=== PATIENT | male | born 1965 | race Caucasian/White ===

== ENCOUNTER 2016-08-27 20:13 | Emergency (ER) | payer BC ==
[~2016-08-27] VITALS: Ht 172.7 cm; Wt 78.5 kg
[~2016-08-27 20:13] MED LIST: METH10TA97
[2016-08-27 20:17] VITALS: Ht 172.7 cm; Wt 78.5 kg
[2016-08-27] MEDS ORDERED: SOD CHLORIDE 0.9% 1,000 ML IV ONE (21:30)
[2016-08-27] MEDS: ACETAMINOPHEN 325 MG TAB PO ONE ×2 (21:30→23:37)
[2016-08-27 22:02] LABS: ADD UMIC YES; UR ASCORBIC ACID NEGATIVE (NEGATIVE); UR BILIRUBIN (Dip) NEGATIVE (NEGATIVE); UR BLOOD (Dip) 3+ mg/dL (NEGATIVE); UR CLARITY CLOUDY (CLEAR); UR COLOR AMBER (YELLOW); UR GLUCOSE (Dip) NEGATIVE (NEGATIVE); UR KETONES (Dip) NEGATIVE (NEGATIVE); UR LEUKOCYTE ESTERASE (Dip) NEGATIVE Leu/ul (NEGATIVE); UR MUCUS MANY /HPF (NONE SEEN); UR NITRITE (Dip) NEGATIVE (NEGATIVE); UR RBC > 182 /HPF (0-5); UR SPECIFIC GRAVITY (Dip) 1.028 (1.003-1.030); UR TOTAL PROTEIN (Dip) 2+ mg/dl (NEGATIVE); UR UROBILINOGEN (Dip) NEGATIVE (NEGATIVE)
[2016-08-27 22:51] LABS: ADD SCAN DIFF NO
--- NOTE | 2016-08-27 22:54 | RADRPT ---
PROCEDURE: CT Abdomen and Pelvis without contrast. CLINICAL INDICATION: Hematuria. TECHNIQUE: CT scan of the abdomen and pelvis without contrast was performed. Coronal and sagittal reformatted images were obtained from the axial source images. Images were reviewed on a high-resolu [employer] PACS workstation. Total exam DLP is 586.85 mGy-cm. CTDIvol is 10.78 mGy. One or more of the f ollowing dose reduction techniques were used: Automated exposure control, adjustment of the mA and/o r kV according to patient size, use of iterative reconstruction technique. COMPARISON: 12/13/2012. FINDINGS: The lung bases are normal. There is no pleural effusion. The liver is normal in size and attenuation. There is no focal hepatic lesion. The gallbladder is surgically absent with clips noted in the gallbladder bed. The bile ducts are no rmal. The spleen is mildly enlarged. There is no focal splenic lesion. Both adrenals are normal with no enlargement or mass. The pancreas is unremarkable with no mass or evidence of pancreatitis. There is no renal mass or hydronephrosis. There is a nonobstructing 0.7 x 0.5 cm calculus in the ri ght renal pelvis, a nonobstructing 0.6 x 1.0 cm calculus in the left renal pelvis, a nonobstructing 0.3 cm calculus in the lower left kidney posteriorly, and a nonobstructing 0.2 cm calculus in the lo wer left kidney anteriorly. There is no ureteral calculus on either side. The abdominal aorta is not dilated. There is no retroperitoneal lymphadenopathy or mass. There is no pelvic lymphadenopathy or mass. The bladder and distal ureters are normal. The periappendiceal region is unremarkable with no evidence of appendicitis. The bowel and mesentery are normal. There is no free fluid or free gas. There are degenerative changes of the spine. There is no fracture or lytic lesion. IMPRESSION: 1. Status post cholecystectomy. 2. Mild splenomegaly. 3. Nonobstructing bilateral renal calculi, larger and more numerous than seen previously. 4. Degenerative changes of the spine. 5. Otherwise unremarkable study. RPTAT: QQ .Tim Altman MD, MD Date Time Electronically viewed and signed by .Tim Altman MD, MD on 08/27/2016 22:54 .R/
--- NOTE | 2016-08-27 23:00 | ERD ---
ER Documentation Chief Complaint Date/Time DATE: 08/27/16 TIME: 23:00 Chief Complaint Dark red blood in urine since this morning ROS All systems reviewed and are negative except as per history of present illness. Medications Home Meds Reported Medications Methimazole* (Tapazole*) 10 Mg Tablet 04/30/12 Allergies Allergies: Coded Allergies: No Known Allergy (Unverified , 03/13/15) PMhx/Soc History of Surgery: Yes (gallbladder removed) Anesthesia Reaction: No Hx Neurological Disorder: No Hx Respiratory Disorders: No Hx Cardiac Disorders: No Hx Psychiatric Problems: No Hx Miscellaneous Medical Probl: Yes (RENAL STONE) Hx Alcohol Use: No Hx Substance Use: No Hx Tobacco Use: Yes (02/15 PPD) Smoking Status: Never smoker Physical Exam Vitals Vital Signs Date Time Temp Pulse Resp B/P Pulse Ox O2 Delivery O2 Flow Rate FiO2 08/27/16 20:17 98.8 82 18 114/97 100 Physical Exam Const: [] Head: Atraumatic Eyes: Normal Conjunctiva ENT: Normal External Ears, Nose and Mouth. Neck: Full range of motion..~ No meningismus. Resp: Clear to auscultation bilaterally Cardio: Regular rate and rhythm, no murmurs Abd: Soft, non tender, non distended. Normal bowel sounds Skin: No petechiae or rashes Back: No midline or flank tenderness Ext: No cyanosis, or edema Neur: Awake and alert Psych: Normal Mood and Affect Result Diagram: 08/27/16224908/27/162249 Results 24 hrs Laboratory Tests Test 08/27/16 21:45 08/27/16 22:50 Urine Color RETA Urine Clarity CLOUDY Urine pH 6.0 Urine Specific [place] 1.028 Urine Ketones NEGATIVEmg/dL Urine Nitrite NEGATIVEmg/dL Urine Bilirubin NEGATIVEmg/dL Urine Urobilinogen NEGATIVEmg/dL Urine Leukocyte Esterase NEGATIVELeu/ul Urine Microscopic RBC > 182/HPF Urine Microscopic WBC 5/HPF Urine Mucus MANY/HPF Urine Hemoglobin 3+mg/dL Urine Glucose NEGATIVEmg/dL Urine Total Protein 2+mg/dl White Blood Count 11.810^3/ul Red Blood Count 4.9210^6/ul Hemoglobin 16.1g/dl Hematocrit 45.5% Mean Corpuscular Volume 92.5fl Mean Corpuscular Hemoglobin 32.7pg Mean Corpuscular Hemoglobin Concent 35.4g/dl Red Cell Distribution Width 12.1% Platelet Count 03863^3/UL Mean Platelet Volume 10.8fl Neutrophils % 73.7% Lymphocytes % 17.5% Monocytes % 6.5% Eosinophils % 1.6% Basophils % 0.3% Nucleated Red Blood Cells % 0.0/100WBC Neutrophils # 8.710^3/ul Lymphocytes # 2.110^3/ul Monocytes # 0.810^3/ul Eosinophils # 0.210^3/ul Basophils # 0.010^3/ul Nucleated Red Blood Cells # 0.010^3/ul Sodium Level 143mmol/L Potassium Level 3.8mmol/L Chloride Level 105mmol/L Carbon Dioxide Level 23mmol/L Anion Gap 19 Blood Urea Nitrogen 14mg/dl Creatinine 0.93mg/dl Glucose Level 95mg/dl Calcium Level 9.5mg/dl Total Bilirubin 0.5mg/dl Direct Bilirubin 0.00mg/dl Indirect Bilirubin 0.5mg/dl Aspartate Amino Transf (AST/SGOT) 32IU/L Alanine Aminotransferase (ALT/SGPT) 49IU/L Alkaline Phosphatase 76IU/L Total Protein 7.7g/dl Albumin 5.0g/dl Globulin 2.70g/dl Albumin/Globulin Ratio 1.85 Lipase 50U/L Current Medications Medications (Trade) Dose Ordered Sig/Olena Route PRN Reason Start Time Stop Time Status Last Admin Dose Admin Sodium Chloride (NS) 1,000 ml @ 1,000 mls/hr Q1H ONCE IV 08/27/16 21:30 08/27/16 22:29 DC 08/27/16 23:36 Acetaminophen (Tylenol Tab) 650 mg ONCE ONCE PO 08/27/16 21:30 08/27/16 21:33 DC Interpretation text CBC shows no evidence of hemorrhage , CBC is elevated Chemistry shows no evidence of significant electrolyte abnormalities or renal insufficiency Liver function tests shows no evidence of acute biliary or hepatic dysfunction Lipase shows no evidence of acute pancreatitis Urinalysis positive for protein hematuria and discolored urine. Procedures/MDM PROCEDURE: CT Abdomen and Pelvis without contrast. CLINICAL INDICATION: Hematuria. TECHNIQUE: CT scan of the abdomen and pelvis without contrast was performed. Coronal and sagittal reformatted images were obtained from the axial source images. Images were reviewed on a high-resolution PACS workstation. Total exam DLP is 586.85 mGy-cm. CTDIvol is 10.78 mGy. One or more of the following dose reduction techniques were used: Automated exposure control, adjustment of the mA and/or kV according to patient size, use of iterative reconstruction technique. COMPARISON: 12/13/2012. FINDINGS: The lung bases are normal. There is no pleural effusion. The liver is normal in size and attenuation. There is no focal hepatic lesion. The gallbladder is surgically absent with clips noted in the gallbladder bed. The bile ducts are normal. The spleen is mildly enlarged. There is no focal splenic lesion. Both adrenals are normal with no enlargement or mass. The pancreas is unremarkable with no mass or evidence of pancreatitis. There is no renal mass or hydronephrosis. There is a nonobstructing 0.7 x 0.5 cm calculus in the right renal pelvis, a nonobstructing 0.6 x 1.0 cm calculus in the left renal pelvis, a nonobstructing 0.3 cm calculus in the lower left kidney posteriorly, and a nonobstructing 0.2 cm calculus in the lower left kidney anteriorly. There is no ureteral calculus on either side. The abdominal aorta is not dilated. There is no retroperitoneal lymphadenopathy or mass. There is no pelvic lymphadenopathy or mass. The bladder and distal ureters are normal. The periappendiceal region is unremarkable with no evidence of appendicitis. The bowel and mesentery are normal. There is no free fluid or free gas. There are degenerative changes of the spine. There is no fracture or lytic lesion. IMPRESSION: 1. Status post cholecystectomy. 2. Mild splenomegaly. 3. Nonobstructing bilateral renal calculi, larger and more numerous than seen previously. 4. Degenerative changes of the spine. 5. Otherwise unremarkable study. RPTAT: QQ .Tim Altman MD, MD Date Time Electronically viewed and signed by .Tim Altman MD, MD on 08/27/2016 22:54 This 50-year-old male patient presents to emergency department today with gross hematuria, history of cholelithiasis. Patient reports symptoms started this morning. He denies pain but is taking 800 mg of ibuprofen every 6 hours for tooth pain. Patient denies nausea vomiting fever or chills. Denies difficulty initiating urine stream. No concern for testicular torsion, pyelonephritis suspected cholelithiasis, CT abdomen and pelvis documents Nonobstructing bilateral renal calculi, larger and more numerous than seen previously. Departure Diagnosis: Primary Impression: UTI (urinary tract infection) Urinary tract infection type: site unspecified Hematuria presence: with hematuria Qualified Code: N39.0 - Urinary tract infection with hematuria, site unspecified Additional Impression: Nephrolithiasis Condition: Good Patient Instructions: Kidney Stone (Urine), Kidney Stone, Undescended (No Symptoms), Understanding Urinary Tract Infections (UTIs) [facility] Additional Instructions: Thank you for for coming to Thank you for for coming to [facility] for your care today. Please ask your nurse or provider if you have questions about your care today and do not leave until all your questions have been answered. Please use any medications given as directed and follow-up with your doctor (or the doctor you were referred to) in the next 2-3 days. If you do not have a primary care doctor you may follow up at the [facility] (listed below). You may also use motrin and tylenol as needed for fever and/or pain unless instructed otherwise by your provider or nurse. Indications for more urgent follow-up have been discussed, but you may return to the Emergency Department at ANY time for any worrisome or worsening symptoms. If you have abdominal pain, please know that no test or exam you received is perfect and you should follow up within 8 hours for continued pain. If you had any imaging studies today, such as an X-Ray or CT Scan, these studies will be reviewed later by a radiologist. You will be called if there are important findings that were not identified today, so make sure the contact information you provided at registration is correct. If you received any narcotic pain control medicine today, such as Vicodin, Morphine or Dilaudid, your coordination and judgment may be affected for a number of hours. Please do not drive or operate heavy machinery, and you may want someone to assist you at home. If you were given a prescription for narcotic medication, be aware that it is very addictive- use sparingly and only if necessary. For your care today. Please ask your nurse or provider if you have questions about your care today and do not leave until all your questions have been answered. Please use any medications given as directed and follow-up with your doctor (or the doctor you were referred to) in the next 2-3 days. If you do not have a primary care doctor you may follow up at the [facility] ( listed below). You may also use motrin and tylenol as needed for fever and/or pain unless instructed otherwise by your provider or nurse. Indications for more urgent follow-up have been discussed, but you may return to the Emergency Department at ANY time for any worrisome or worsening symptoms. If you have abdominal pain, please know that no test or exam you received is perfect and you should follow up within 8 hours for continued pain. If you had any imaging studies today, such as an X-Ray or CT Scan, these studies will be reviewed later by a radiologist. You will be called if there are important findings that were not identified today, so make sure the contact information you provided at registration is correct. If you received any narcotic pain control medicine today, such as Vicodin, Morphine or Dilaudid, your coordination and judgment may be affected for a number of hours. Please do not drive or operate heavy machinery, and you may want someone to assist you at home. If you were given a prescription for narcotic medication, be aware that it is very addictive- use sparingly and only if necessary. SARAN SHELTON Aug 27, 2016 23:00
[2016-08-27 23:24] LABS: BASOPHILS % 0.3 % (0.0-2.0); EOSINOPHILS # 0.2 10^3/ul (0.0-0.5); EOSINOPHILS % 1.6 % (0.0-7.0); HEMATOCRIT 45.5 % (42.0-52.0); HEMOGLOBIN 16.1 g/dl (14.0-18.0); LYMPHOCYTES # 2.1 10^3/ul (0.8-2.9); LYMPHOCYTES % 17.5 % (15.0-51.0); MEAN CORPUSCULAR HEMOGLOBIN 32.7 pg (29.0-33.0); MEAN CORPUSCULAR HGB CONC 35.4 g/dl (32.0-37.0); MEAN CORPUSCULAR VOLUME 92.5 fl (82.0-101.0); MEAN PLATELET VOLUME 10.8 fl (7.4-10.4); MONOCYTE # 0.8 10^3/ul (0.3-0.9); MONOCYTES % 6.5 % (0.0-11.0); NEUTROPHIL # 8.7 10^3/ul (1.6-7.5); NEUTROPHILS % 73.7 % (39.0-77.0); PLATELET COUNT 201 10^3/UL (140-415); RED BLOOD COUNT 4.92 10^6/ul (4.70-6.10); RED CELL DISTRIBUTION WIDTH 12.1 % (11.5-14.5); WHITE BLOOD COUNT 11.8 10^3/ul (4.8-10.8)
[2016-08-27 23:40] LABS: ALBUMIN/GLOBULIN RATIO 1.85
[2016-08-27 23:59] LABS: BILIRUBIN,INDIRECT 0.5 mg/dl (0-1.1); BILIRUBIN,TOTAL 0.5 mg/dl (0.2-1.3); CALCIUM 9.5 mg/dl (8.4-10.2); CREATININE 0.93 mg/dl (0.61-1.24); POTASSIUM 3.8 mmol/L (3.5-5.1); TOTAL PROTEIN 7.7 g/dl (6.1-8.1)
[2016-08-28] MEDS ORDERED: TAMS-14 PO (00:55)
[2016-08-28] MEDS ORDERED: NAPR-260 PO (00:56)
[2016-08-28] MEDS ORDERED: CIPR500T4 PO (00:56)
[2016-08-28 01:00] VITALS: BP 134/84; PULSE 84; RESP 16
== END 2016-08-28 01:11 | disposition home or self-care (01) ==
LOC: FTE 20:13
DX: N39.0 Urinary tract infection, site not specified (principal); N20.0 Calculus of kidney; F17.210 Nicotine dependence, cigarettes, uncomplicated
CPT/HCPCS: 74176; 80053; 81001; 83690; 85025; J7030; Z7502; Z7610

== ENCOUNTER 2017-01-19 10:43 | Day surgery (SDC) | payer BC ==
[2017-01-19] VITALS (11 sets, daily range): BP systolic 110–119; BP diastolic 54–86; PULSE 72–89; RESP 13–28; Ht 175.3 cm; Wt 85.9 kg
[~2017-01-19] VITALS: Ht 175.3 cm; Wt 85.9 kg
[~2017-01-19 10:43] MED LIST changes: +CEFAZOLIN 2 GM/50 ML (PMX) 50 ML IVPB SCH; +CIPR500T4 PO; +NAPR-260 PO; +TAMS-14 PO
[2017-01-19] MEDS ORDERED: PROPOFOL 20 ML ONE (12:16)
[2017-01-19] MEDS ORDERED: FENTAnyl 50 MCG/ML VIAL ONE (12:16)
[2017-01-19] MEDS ORDERED: MIDAZOLAM 1 MG/ML 2 ML INJ ONE (12:16)
[2017-01-19] MEDS ORDERED: ROCURONIUM 50 MG INJ ONE (12:16)
[2017-01-19] MEDS ORDERED: LIDOCAINE 2% (SDV) 5 ML INJ ONE (12:16)
--- NOTE | 2017-01-19 12:42 | HPN ---
Date/Time of Note Date/Time of Note DATE: 01/19/17 TIME: 12:42 Interval H&P Admission Note Pt. seen H&P reviewed: No system changes ALPESH FAY MD Jan 19, 2017 12:42
[2017-01-19] MEDS ORDERED: CEFAZOLIN 1 GM INJ ONE ×2 (12:58→13:02)
[2017-01-19] MEDS ORDERED: ONDANSETRON 4 MG INJ ONE (13:00)
[2017-01-19] MEDS ORDERED: DEXAMETHASONE 4 MG/ML 1 ML INJ ONE (13:00)
[2017-01-19] MEDS ORDERED: SUGAMMADEX SODIUM 200 MG/2 ML VIAL IV ONE (13:30)
[2017-01-19] MEDS ORDERED: MEPERIDINE 25 MG INJ ONE (13:44)
--- NOTE | 2017-01-19 13:46 | OPR ---
Date/Time of Note Date/Time of Note DATE: 01/19/17 TIME: 13:39 Operative Report Procedure Date: Jan 19, 2017 Preoperative Diagnosis Left renal stone 9 mm in size Postoperative Diagnosis Left renal stone 9 mm in size Operation/Procedure Performed Left extracorporeal shockwave lithotripsy Surgeon see signature line [employer] Consultant None Second [employer] Consultant: SHARATH JOHNSON DO Anesthesia Type: general Estimated Blood Loss: none Transfusion none Specimen None Grafts/Implants none Complications none Pt Condition Post Procedure: stable Disposition: PACU Indications 9 mm left renal stone Procedure Description The patient was brought to the operating room. He was positioned in the supine position on the lithotripsy machine table. He was given general anesthesia and 2 g of Ancef at the start of the procedure. Timeout was done and the patient was identified by his name, birthdate, the procedure and the side of the procedure. The stone located in the middle pole calyx of the left kidney and measuring 9 mm was then visualized on both screens. The shockwave lithotripsy was then started. The energy level started with 3 KV and went up to 7 gradually. The position of the stone was checked regularly every 300-400 shockwaves. The stone appeared to be breaking well and the total shockwaves delivered were 2500 shocks. The patient tolerated the procedure well and was transferred to the recovery room in a stable and satisfactory condition. ALPESH FAY MD Jan 19, 2017 13:46
[2017-01-19] MEDS ORDERED: HYDROmorphONE (0.2 MG/ML) 10ML SYG IV ONE (13:49)
[2017-01-19] MEDS ORDERED: ONDANSETRON 4 MG INJ IV PRN ×2 (14:00)
[2017-01-19] MEDS ORDERED: HYDROmorphONE (0.2 MG/ML) 10ML SYG IV PRN (14:00)
[2017-01-19] MEDS ORDERED: MEPERIDINE 25 MG INJ IV PRN (14:00)
[2017-01-19] MEDS ORDERED: DIPHENHYDRAMINE 50 MG INJ IV PRN (14:00)
[2017-01-19] MEDS ORDERED: METOCLOPRAMIDE 10 MG INJ IV PRN (14:00)
[2017-01-19] MEDS ORDERED: HYDROCODONE/APAP (5/325) TAB PO PRN (14:00)
[2017-01-19] MEDS ORDERED: PROCHLORPERAZINE 10 MG INJ IV PRN (14:00)
[2017-01-19] MEDS: HYDROmorphONE (0.2 MG/ML) 10ML SYG IV PRN ×2 (14:06→14:13)
--- NOTE | 2017-01-19 14:08 | RADRPT ---
PROCEDURE: Intraoperative imaging of the abdomen with fluoroscopy. CLINICAL INDICATION: Abdominal pain. Intraoperative. TECHNIQUE: 8 images of the abdomen were obtained in the operating room with an image intensifier. No radiologist was in attendance. Fluoroscopy time is 91 seconds. COMPARISON: CT scan of the abdomen and pelvis dated 08/27/2016. FINDINGS: Images demonstrate fluoroscopy used for targeting of a left renal calculus or a extracorporal shock wave lithotripsy. IMPRESSION: 1. Satisfactory intraoperative imaging of the abdomen. RPTAT: QQ .Tim Altman MD, MD Date Time Electronically viewed and signed by .Tim Altman MD, on 01/19/2017 14:07 .R/
== END 2017-01-19 15:25 | disposition home or self-care (01) ==
LOC: SDS 10:43
PROVIDERS: ATTEND Urology
DX: N20.0 Calculus of kidney (principal)
CPT/HCPCS: 50590; 74430; J0690; J1100; J1170; J2175; J2250; J2405; J3010; Z7512; Z7610

== ENCOUNTER 2017-06-10 10:23 | Day surgery (SDC) | END 2017-06-10 15:50 | disposition home or self-care (01) ==

== ENCOUNTER 2018-10-04 12:55 | Inpatient (IN) | payer BC ==
[~2018-10-04] VITALS: Ht 170.2 cm; Wt 81.0 kg
[~2018-10-04 12:55] MED LIST changes: +ACET325T33 PO; -CEFAZOLIN 2 GM/50 ML (PMX) 50 ML IVPB SCH; +CIPR-193 PO; -CIPR500T4 PO; +DOCU-144 PO; +IBUP-1542 PO; +METH-493 PO; -METH10TA97; -NAPR-260 PO; -TAMS-14 PO
[2018-10-04] MEDS ORDERED: HYDROmorphONE 0.5 MG/0.5 ML SYG IV STA ×3 (14:24→18:36)
[2018-10-04] MEDS ORDERED: ACETAMINOPHEN 325 MG TAB PO PRN (19:00)
[2018-10-04] MEDS ORDERED: morphine 2 MG INJ IV PRN (19:00)
[2018-10-04] MEDS ORDERED: NACL 0.9% 3 ML SYG IV SCH (19:00)
[2018-10-04] MEDS ORDERED: BISACODYL (EC) 5 MG TAB PO PRN (19:00)
[2018-10-04] MEDS ORDERED: DOCUSATE SODIUM 100 MG CAP PO PRN (19:00)
[2018-10-04] MEDS: FAMOTIDINE 20 MG TAB PO SCH (20:06)
[2018-10-04] MEDS: SOD CHLORIDE 0.9% 1,000 ML IV SCH ×2 (20:10→22:12)
[2018-10-04 21:55] VITALS: BP 152/89; PULSE 51; RESP 20
[2018-10-04 22:30] VITALS: Ht 170.2 cm; Wt 81.0 kg
[2018-10-04] MEDS: NICOTINE (14 MG/24 HR) PATCH TRANSDERM SCH (22:45)
[2018-10-04] MEDS: NIFEdipine (XL) 30 MG TAB PO SCH (22:45)
[2018-10-04] MEDS: CEFTRIAXONE 1 GM/50 ML (PMX) 50 ML IVPB SCH (22:46)
[2018-10-04] MEDS: HYDROmorphONE 0.5 MG/0.5 ML SYG IV PRN (23:36)
[2018-10-05] VITALS (21 sets, daily range): BP systolic 103–157; BP diastolic 65–93; PULSE 50–99; RESP 16–36
[2018-10-05] MEDS: SOD CHLORIDE 0.9% 1,000 ML IV SCH ×2 (06:11→14:43)
[2018-10-05] MEDS: HYDROmorphONE 0.5 MG/0.5 ML SYG IV PRN ×4 (06:18→20:51)
[2018-10-05] MEDS: METHIMAZOLE 5 MG TAB PO SCH (08:27)
[2018-10-05] MEDS: NICOTINE (14 MG/24 HR) PATCH TRANSDERM SCH (08:28)
[2018-10-05] MEDS: NIFEdipine (XL) 30 MG TAB PO SCH ×2 (08:28→14:41)
[2018-10-05] MEDS: HYDROCODONE/APAP (5/325) TAB PO PRN (08:34)
[2018-10-05] MEDS: ONDANSETRON 4 MG INJ IV PRN ×2 (11:49→15:58)
[2018-10-05] MEDS ORDERED: FENTAnyl 50 MCG/ML VIAL ONE (17:56)
[2018-10-05] MEDS ORDERED: ROCURONIUM 50 MG INJ ONE (18:58)
[2018-10-05] MEDS ORDERED: PROPOFOL 20 ML ONE (18:58)
[2018-10-05] MEDS ORDERED: CEFAZOLIN 1 GM INJ ONE (18:58)
[2018-10-05] MEDS ORDERED: SUCCINYLCHOLINE CHLORIDE 100 MG/5 ML SYG IV ONE (18:58)
[2018-10-05] MEDS ORDERED: LIDOCAINE 100 MG SYRINGE ONE (18:58)
[2018-10-05] MEDS ORDERED: SUGAMMADEX SODIUM 200 MG/2 ML VIAL IV ONE (18:58)
[2018-10-05] MEDS ORDERED: MEPERIDINE 25 MG INJ ONE (20:25)
[2018-10-05] MEDS ORDERED: hydrALAzine 20 MG INJ IV PRN (20:30)
[2018-10-05] MEDS ORDERED: DIPHENHYDRAMINE 50 MG INJ IV PRN (20:30)
[2018-10-05] MEDS ORDERED: FENTAnyl 50 MCG/ML VIAL IV PRN ×2 (20:30)
[2018-10-05] MEDS ORDERED: ONDANSETRON 4 MG INJ IV PRN (20:30)
[2018-10-05] MEDS ORDERED: ALBUTEROL 0.083% (NEB) 2.5 MG/3 ML AMP HHN PRN (20:30)
[2018-10-05] MEDS ORDERED: MEPERIDINE 25 MG INJ IV PRN (20:30)
[2018-10-05] MEDS ORDERED: HYDROmorphONE 1 MG/5 ML IV SYRINGE IV PRN ×3 (20:30)
[2018-10-05] MEDS: FAMOTIDINE 20 MG TAB PO SCH (21:21)
[2018-10-05] MEDS: CEFTRIAXONE 1 GM/50 ML (PMX) 50 ML IVPB SCH (21:58)
[2018-10-05] MEDS: morphine 2 MG INJ IV PRN (22:11)
[2018-10-06 00:35] VITALS: BP 138/79; PULSE 79; RESP 18
[2018-10-06] MEDS: morphine 2 MG INJ IV PRN ×4 (01:44→16:02)
[2018-10-06] MEDS: SOD CHLORIDE 0.9% 1,000 ML IV SCH ×2 (02:46→03:24)
[2018-10-06 05:00] VITALS: BP 128/84; PULSE 62; RESP 18
[2018-10-06] MEDS: NICOTINE (14 MG/24 HR) PATCH TRANSDERM SCH (06:13)
[2018-10-06 08:08] VITALS: BP 128/84; PULSE 63; RESP 19
[2018-10-06] MEDS: METHIMAZOLE 5 MG TAB PO SCH (08:34)
[2018-10-06] MEDS: HYDROCODONE/APAP (5/325) TAB PO PRN (08:39)
== END 2018-10-06 16:50 | disposition home or self-care (01) | DRG 660 ==
LOC: E/R 12:55 → MS1 17:00
PROVIDERS: ADMIT Internal Medicine; ATTEND Internal Medicine
PROC: 0TC78ZZ Extirpation of Matter from Left Ureter, Via Natural or Artificial Opening Endoscopic (ICD-10-PCS; 2018-10-05)
PROC: 0T778DZ Dilation of Left Ureter with Intraluminal Device, Via Natural or Artificial Opening Endoscopic (ICD-10-PCS; principal; 2018-10-05 17:30)
DX: N13.2 Hydronephrosis with renal and ureteral calculous obstruction (principal); R65.10 Systemic inflammatory response syndrome (SIRS) of non-infectious origin without acute organ dysfunction; N17.9 Acute kidney failure, unspecified; E03.9 Hypothyroidism, unspecified; Z72.0 Tobacco use
CPT/HCPCS: 71045; 74018; 74176; 74430; 80048; 80053; 80076; 81001; 83036; 83690; 83735; 84100; 84439; 84443; 84480; 85025; 85610; 87086; 88300; 93005; 96374; 96376; C2617; J0690; J0696; J1170; J2001; J2175; J2270; J2405; J3010; J7030